=== PATIENT | male | born 1960 | race Caucasian/White ===

== ENCOUNTER 2020-08-20 13:02 | Emergency (ER) | payer MEDICARE ==
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
[2020-08-20] MEDS ORDERED: PERCOCET TABLET 5/325MG PO STA (13:28)
[2020-08-20] MEDS ORDERED: PERCOCET TABLET 5/325MG ONE (13:34)
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
[2020-08-20 17:26] VITALS: BP 109/79; PULSE 91; O2SAT 94
[2020-08-20] MEDS ORDERED: NORCO 5/325 MG PO ONE (19:01)
[2020-08-20] MEDS ORDERED: NORCO 5/325 MG ONE (19:06)
== END 2020-08-20 20:01 | disposition home or self-care (01) ==
LOC: ED 13:02
DX: S80.212A Abrasion, left knee, initial encounter (principal); S80.211A Abrasion, right knee, initial encounter; V59.50XA Passenger in pick-up truck or van injured in collision with unspecified motor vehicles in traffic accident, initial encounter; S02.2XXA Fracture of nasal bones, initial encounter for closed fracture
CPT/HCPCS: 70450; 70486; 72125; 99285; A9270-GY